=== PATIENT | female | born 1995 | race Two or more races ===

== ENCOUNTER → 2020-09-13 07:57 | Outpatient (BNVA) | payer OTHER, SELFPAY | PROVIDERS: PCP Family Medicine; Visit Provider Advanced Practice Midwife ==

== ENCOUNTER 2020-11-14 08:21 | Outpatient (REF) | payer OTHER, SELFPAY ==
[2020-11-14 11:50] LABS: MANUAL DIFF FLAG NO
[2020-11-14 12:08] LABS: Basophils Percent Auto 0.3 % (0-2); Eosinophils Absolute Auto 0.1 X10*3/uL (0.0-0.4); Hematocrit 41.5 % (37-47); Hemoglobin 12.8 g/dl (12.0-16.0); Imm Gran Abs Auto 0.02 X10*3/uL (0.00-0.03); Imm Gran Pct Auto 0.3 % (0.0-0.4); Lymphocytes Absolute Auto 1.6 X10*3/uL (1.2-4.9); Lymphocytes Percent Auto 27.4 % (20-40); Mean Corpuscular HGB Conc 30.8 g/dl (31.0-35.0); Mean Corpuscular Hemoglobin 26.7 pg (27.0-33.0); Mean Corpuscular Volume 86.6 fL (80-98); Mean Platelet Volume 9.1 fL (9.4-12.3); Monocytes Absolute Auto 0.3 X10*3/uL (0.1-1.2); Monocytes Percent Auto 5.8 % (2-11); Neutrophils Absolute Auto 3.8 X10*3/uL (2.0-8.3); Neutrophils Percent Auto 65.2 % (45-73); Platelet Count 440 X10*3/uL (160-400); Red Blood Count 4.79 X10*6/uL (4.20-5.50); Red Cell Distribution Width 13.3 % (11.0-16.0); White Blood Count 5.9 X10*3/uL (4.8-10.8)
[2020-11-14 12:17] LABS: Estimated Average Glucose 103 mg/dL; Hemoglobin A1c % 5.2 %
[2020-11-14 12:42] LABS: Alanine Aminotransferase 36 U/L (0-31); Albumin Level 4.5 g/dL (3.5-5.0); Alkaline Phosphatase 66 U/L (39-117); Anion Gap 16 (12-20); Aspartate Amino Transferase 16 U/L (5-31); Bilirubin Total 0.4 mg/dL (0.0-1.0); Blood Urea Nitrogen 12 mg/dL (9-16); C Reactive Protein 0.51 mg/dL (< or = 0.50); Calcium 9.5 mg/dL (8.4-10.2); Carbon Dioxide 25 mmol/L (22-29); Chloride 104 mmol/L (96-108); Cholesterol 245 mg/dL; Estimated Glomerular Filt Rate > 60; Glucose Fasting 80 mg/dL (60-99); HDL Cholesterol 60 mg/dL; Iron 40 mcg/dL (30-160); LDL Cholesterol Calculated 164 mg/dl; Percent Iron Saturation 10 % (15-50); Potassium 4.6 mmol/L (3.3-5.1); Sodium 140 mmol/L (135-145); Total Iron Binding Capacity 388 mcg/dL (228-428); Total Protein 7.4 g/dL (6.5-8.0); Triglycerides 106 mg/dL; Unsaturated Iron Binding 348 ug/dL
[2020-11-14 12:56] LABS: Ferritin 8 ng/mL (10-122); TSH reflex Free T4 1.75 uIU/mL (0.32-4.0); Vitamin D 25-OH Total 40.5 ng/mL (>30)
[2020-11-14 13:47] LABS: Folate > 20.0 ng/mL (> or = 4.0); Vitamin B12 304 pg/mL (200-900)
[2020-11-15 09:37] LABS: Insulin Level Total 13.6 uIU/mL
[2020-11-15 14:01] LABS: Calcium (PTHI) 9.6 mg/dL (8.6-10.2); PTHI 42 pg/mL (14-64)
[2020-11-17 07:26] LABS: Vitamin B1 15 nmol/L (8-30)
[2020-11-17 17:06] LABS: Vitamin A 75 mcg/dL (38-98)
[2020-11-20 01:11] LABS: Zinc 86 mcg/dL (60-130)
== END 2020-11-14 08:22 | disposition home or self-care (01) ==
LOC: HO.LAB 08:21
PROVIDERS: PCP Family Medicine; Visit Provider Physician Assistant
DX: E66.01 Morbid (severe) obesity due to excess calories (principal); Z68.38 Body mass index [BMI] 38.0-38.9, adult
CPT/HCPCS: 36415; 80053; 80061; 82306; 82607; 82728; 82746; 83036; 83525; 83540; 83970; 84425; 84443; 84590; 84630; 85025; 86140; 99202

== ENCOUNTER → 2020-12-12 08:43 | Outpatient (BNVA) | payer OTHER, SELFPAY | PROVIDERS: PCP Family Medicine; Visit Provider Advanced Practice Midwife | DX: Z30.41 Encounter for surveillance of contraceptive pills (principal) | CPT/HCPCS: 99212 ==

== ENCOUNTER 2021-01-20 08:53 | Outpatient (REF) | payer OTHER, SELFPAY | END 2021-01-20 08:54 | disposition home or self-care (01) | LOC: HO.WFDLDS 08:53 | PROVIDERS: Visit Provider Allergy & Immunology | DX: T78.1XXA Other adverse food reactions, not elsewhere classified, initial encounter (principal) | CPT/HCPCS: 36415; 86003 ==

== ENCOUNTER → 2021-04-14 08:47 | Outpatient (BNVA) | payer OTHER, SELFPAY | PROVIDERS: PCP Family Medicine; Visit Provider Advanced Practice Midwife | DX: Z30.41 Encounter for surveillance of contraceptive pills (principal); E66.9 Obesity, unspecified; Z68.39 Body mass index [BMI] 39.0-39.9, adult | CPT/HCPCS: 99212 ==

== ENCOUNTER 2021-05-24 10:24 | Outpatient (REF) | payer OTHER, SELFPAY ==
[2021-05-24 11:16] LABS: Iron 60 mcg/dL (30-160); Percent Iron Saturation 17 % (15-50); Total Iron Binding Capacity 359 mcg/dL (228-428); Unsaturated Iron Binding 299 ug/dL
[2021-05-24 12:04] LABS: Folate > 20.0 ng/mL (> or = 4.0); Vitamin B12 716 pg/mL (200-900)
== END 2021-05-24 10:25 | disposition home or self-care (01) ==
LOC: HO.LAB 10:24
PROVIDERS: Visit Provider Physician Assistant
DX: D64.9 Anemia, unspecified (principal); E53.8 Deficiency of other specified B group vitamins
CPT/HCPCS: 36415; 82607; 82746; 83540

== ENCOUNTER → 2021-05-30 12:11 | Outpatient (BNVA) | payer OTHER, SELFPAY | PROVIDERS: PCP Family Medicine; Visit Provider Advanced Practice Midwife ==

== ENCOUNTER → 2021-06-01 11:36 | Outpatient (BNVA) | payer OTHER, SELFPAY | PROVIDERS: PCP Family Medicine; Visit Provider Advanced Practice Midwife ==

== ENCOUNTER 2021-06-01 16:16 | Emergency (ER) | payer OTHER, SELFPAY ==
[2021-06-01 16:22] VITALS: BP 129/72; PULSE 100; RESP 18; TEMP 36.8; O2SAT 99; BMI 39.1
[2021-06-01] MEDS: Ibuprofen 600 MG TABLET PO (16:27)
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
== END 2021-06-01 18:20 | disposition home or self-care (01) ==
PROVIDERS: Emergency Provider Emergency Medicine; PCP Family Medicine
DX: S29.012A Strain of muscle and tendon of back wall of thorax, initial encounter (principal); V89.2XXA Person injured in unspecified motor-vehicle accident, traffic, initial encounter; Y93.9 Activity, unspecified; Y92.410 Unspecified street and highway as the place of occurrence of the external cause; Y99.9 Unspecified external cause status
CPT/HCPCS: 99283; 99284

== ENCOUNTER → 2021-07-26 15:41 | Outpatient (BNVA) | payer OTHER, SELFPAY | PROVIDERS: PCP Family Medicine; Referring Provider Family Medicine; Visit Provider Physician Assistant ==

== ENCOUNTER → 2021-07-28 07:31 | Outpatient (BNVA) | payer OTHER, SELFPAY | PROVIDERS: PCP Family Medicine; Visit Provider Surgery ==

== ENCOUNTER 2021-08-01 07:33 | Outpatient (REF) | payer OTHER, SELFPAY ==
--- NOTE | ~2021-08-01 | XR_ITS ---
EXAMINATION: XR CHEST CLINICAL INFORMATION: Morbid obesity due to excess calories. COMPARISON: 10/20/2019 chest radiograph. TECHNIQUE: 2 views of the chest were obtained. FINDINGS: No significant abnormality is noted involving the heart, lungs, mediastinum, bony thorax or soft tissues. XR/XR chest 2V IMPRESSION: No acute cardiopulmonary process.
[2021-08-01 08:07] LABS: MANUAL DIFF FLAG NO
[2021-08-01 08:32] LABS: Basophils Percent Auto 0.5 % (0-2); Eosinophils Absolute Auto 0.1 X10*3/uL (0.0-0.4); Eosinophils Percent Auto 1.2 % (0-4); Hematocrit 41.5 % (37.0-47.0); Imm Gran Abs Auto 0.02 X10*3/uL (0.00-0.03); Imm Gran Pct Auto 0.3 % (0.0-0.4); Lymphocytes Percent Auto 34.3 % (20-40); Mean Corpuscular HGB Conc 31.3 g/dl (31.0-35.0); Mean Corpuscular Volume 86.3 fL (80.0-98.0); Mean Platelet Volume 8.7 fL (9.4-12.3); Monocytes Absolute Auto 0.4 X10*3/uL (0.1-1.2); Monocytes Percent Auto 6.4 % (2-11); Neutrophils Absolute Auto 3.3 x10*3/uL (2.0-8.3); Neutrophils Percent Auto 57.3 % (45-73); Platelet Count 407 X10*3/uL (160-400); Red Blood Count 4.81 X10*6/uL (4.20-5.50); Red Cell Distribution Width 12.9 % (11.0-16.0); White Blood Count 5.8 X10*3/uL (4.8-10.8)
[2021-08-01 08:40] LABS: Estimated Average Glucose 105 mg/dL; Hemoglobin A1c % 5.3 %
[2021-08-01 08:47] LABS: Alanine Aminotransferase 23 U/L (0-31); Albumin Level 4.1 g/dL (3.5-5.0); Alkaline Phosphatase 69 U/L (39-117); Anion Gap 10 (12-20); Aspartate Amino Transferase 11 U/L (5-31); Bilirubin Total 0.5 mg/dL (0.0-1.0); Blood Urea Nitrogen 16 mg/dL (9-16); C Reactive Protein 0.79 mg/dL (< or = 0.50); Calcium 9.6 mg/dL (8.4-10.2); Carbon Dioxide 27 mmol/L (22-29); Chloride 105 mmol/L (96-108); Cholesterol 221 mg/dL; Estimated Glomerular Filt Rate > 60; Glucose Random 86 mg/dL (60-115); HDL Cholesterol 46 mg/dL; Iron 128 mcg/dL (30-160); LDL Cholesterol Calculated 146 mg/dl; Percent Iron Saturation 36 % (15-50); Potassium 4.4 mmol/L (3.3-5.1); Sodium 138 mmol/L (135-145); Total Iron Binding Capacity 355 mcg/dL (228-428); Total Protein 7.3 g/dL (6.5-8.0); Triglycerides 149 mg/dL; Unsaturated Iron Binding 227 ug/dL
[2021-08-01 09:48] LABS: Folate > 20.0 ng/mL (> or = 4.0); TSH reflex Free T4 1.96 uIU/mL (0.32-4.0); Vitamin B12 500 pg/mL (200-900); Vitamin D 25-OH Total 33.6 ng/mL (>30)
--- NOTE | 2021-08-01 09:50 | ECG_ITS ---
Test Reason : obesity Blood Pressure : / mmHG Vent. Rate : 084 BPM Atrial Rate : 084 BPM P-R Int : 168 ms QRS Dur : 084 ms QT Int : 382 ms P-R-T Axes : 046 041 041 degrees QTc Int : 451 ms Normal sinus rhythm Normal ECG No previous ECGs available Referred By: Rashawn Marie Electronically Signed By:KELLY HENDRIX
[2021-08-01 10:00] LABS: Ferritin 21 ng/mL (10-122); Insulin 14 uU/mL (2-29)
[2021-08-02 13:50] LABS: Calcium (PTHI) 9.4 mg/dL (8.6-10.2); PTHI 46 pg/mL (14-64)
[2021-08-05 03:36] LABS: Zinc 79 mcg/dL (60-130)
[2021-08-06 10:46] LABS: Vitamin A 80 mcg/dL (38-98)
[2021-08-06 11:58] LABS: Vitamin B1 16 nmol/L (8-30)
== END 2021-08-01 07:34 | disposition home or self-care (01) ==
LOC: HO.LAB 07:33
PROVIDERS: PCP Family Medicine; Visit Provider Surgery
DX: Z01.818 Encounter for other preprocedural examination (principal); E66.01 Morbid (severe) obesity due to excess calories
CPT/HCPCS: 36415; 71046; 80053; 80061; 82306; 82607; 82728; 82746; 83036; 83525; 83540; 83970; 84425; 84443; 84590; 84630; 85025; 86140; 93005

== ENCOUNTER 2021-08-03 07:48 | Outpatient (REF) | payer OTHER, SELFPAY ==
[2021-08-04 13:00] LABS: H Pylori Breath Test Negative (Negative)
== END 2021-08-03 07:49 | disposition home or self-care (01) ==
LOC: HO.LNP 07:48
PROVIDERS: Surgery; PCP Family Medicine; Referring Provider Family Medicine; Visit Provider Physician Assistant Surgical
DX: E66.01 Morbid (severe) obesity due to excess calories (principal); Z11.0 Encounter for screening for intestinal infectious diseases
CPT/HCPCS: 83013; 99211

== ENCOUNTER 2021-08-07 13:54 | Outpatient (REF) | payer OTHER, SELFPAY | END 2021-08-07 13:55 | disposition home or self-care (01) | LOC: HO.LNP 13:54 | PROVIDERS: Visit Provider Hospitalist | DX: Z20.822 Contact with and (suspected) exposure to COVID-19 (principal); J06.9 Acute upper respiratory infection, unspecified | CPT/HCPCS: U0003; U0005 ==

== ENCOUNTER 2021-09-19 08:10 | Outpatient (REF) | payer OTHER, SELFPAY ==
[2021-09-19 16:17] LABS: CT PCR NOT DETECTED (Not Detect.); NG PCR NOT DETECTED (Not Detect.)
== END 2021-09-19 08:11 | disposition home or self-care (01) ==
LOC: HO.LAB 08:10
PROVIDERS: PCP Family Medicine; Visit Provider Advanced Practice Midwife
DX: Z01.419 Encounter for gynecological examination (general) (routine) without abnormal findings (principal); Z11.3 Encounter for screening for infections with a predominantly sexual mode of transmission; Z11.8 Encounter for screening for other infectious and parasitic diseases; J02.9 Acute pharyngitis, unspecified; E53.8 Deficiency of other specified B group vitamins; E66.01 Morbid (severe) obesity due to excess calories; T78.49XA Other allergy, initial encounter; Z68.38 Body mass index [BMI] 38.0-38.9, adult; Z88.1 Allergy status to other antibiotic agents; Z88.0 Allergy status to penicillin; J30.89 Other allergic rhinitis; Z79.899 Other long term (current) drug therapy
CPT/HCPCS: 87491; 87591

== ENCOUNTER 2021-09-21 08:28 | Outpatient (REF) | payer OTHER, SELFPAY ==
[2021-09-21 11:49] LABS: MANUAL DIFF FLAG NO
[2021-09-21 11:51] LABS: Basophils Percent Auto 0.2 % (0-2); Eosinophils Absolute Auto 0.1 X10*3/uL (0.0-0.4); Eosinophils Percent Auto 1.7 % (0-4); Hematocrit 38.1 % (37.0-47.0); Hemoglobin 11.9 g/dl (12.0-16.0); Imm Gran Abs Auto 0.05 X10*3/uL (0.00-0.03); Imm Gran Pct Auto 0.9 % (0.0-0.4); Lymphocytes Absolute Auto 1.6 X10*3/uL (1.2-4.9); Lymphocytes Percent Auto 27.3 % (20-40); Mean Corpuscular HGB Conc 31.2 g/dl (31.0-35.0); Mean Corpuscular Hemoglobin 26.9 pg (27.0-33.0); Mean Corpuscular Volume 86.2 fL (80.0-98.0); Mean Platelet Volume 9.2 fL (9.4-12.3); Monocytes Absolute Auto 0.3 X10*3/uL (0.1-1.2); Monocytes Percent Auto 5.5 % (2-11); Neutrophils Absolute Auto 3.8 x10*3/uL (2.0-8.3); Neutrophils Percent Auto 64.4 % (45-73); Platelet Count 411 X10*3/uL (160-400); Red Blood Count 4.42 X10*6/uL (4.20-5.50); Red Cell Distribution Width 13.2 % (11.0-16.0); White Blood Count 5.8 X10*3/uL (4.8-10.8)
[2021-09-21 13:29] LABS: Monotest Negative (Negative)
== END 2021-09-21 08:29 | disposition home or self-care (01) ==
LOC: HO.WFDLDS 08:28
PROVIDERS: Visit Provider Family Medicine
DX: J02.9 Acute pharyngitis, unspecified (principal)
CPT/HCPCS: 36415; 85025; 86308

== ENCOUNTER 2022-09-04 07:08 | Outpatient (REF) | payer OTHER, MEDICAID, SELFPAY ==
[2022-09-04 11:20] LABS: MANUAL DIFF FLAG NO
[2022-09-04 11:35] LABS: Basophils Percent Auto 0.3 % (0-2); Eosinophils Absolute Auto 0.1 X10*3/uL (0.0-0.4); Eosinophils Percent Auto 1.5 % (0-4); Hematocrit 42.1 % (37.0-47.0); Hemoglobin 13.1 g/dl (12.0-16.0); Imm Gran Abs Auto 0.03 X10*3/uL (0.00-0.03); Imm Gran Pct Auto 0.4 % (0.0-0.4); Lymphocytes Absolute Auto 2.3 X10*3/uL (1.2-4.9); Lymphocytes Percent Auto 33.1 % (20-40); Mean Corpuscular HGB Conc 31.1 g/dl (31.0-35.0); Mean Corpuscular Hemoglobin 26.4 pg (27.0-33.0); Mean Corpuscular Volume 84.9 fL (80.0-98.0); Mean Platelet Volume 9.4 fL (9.4-12.3); Monocytes Absolute Auto 0.4 X10*3/uL (0.1-1.2); Monocytes Percent Auto 6.2 % (2-11); Neutrophils Percent Auto 58.5 % (45-73); Platelet Count 424 X10*3/uL (160-400); Red Blood Count 4.96 X10*6/uL (4.20-5.50); Red Cell Distribution Width 13.5 % (11.0-16.0); White Blood Count 6.8 X10*3/uL (4.8-10.8)
[2022-09-04 11:58] LABS: Alanine Aminotransferase 40 U/L (0-31); Albumin Level 4.3 g/dL (3.5-5.0); Alkaline Phosphatase 83 U/L (39-117); Anion Gap 14 (12-20); Aspartate Amino Transferase 30 U/L (5-31); Bilirubin Total 0.5 mg/dL (0.0-1.0); Blood Urea Nitrogen 7 mg/dL (9-16); Calcium 9.4 mg/dL (8.4-10.2); Carbon Dioxide 25 mmol/L (22-29); Chloride 105 mmol/L (96-108); Cholesterol 237 mg/dL; Estimated Glomerular Filt Rate > 60; Glucose Fasting 81 mg/dL (60-99); HDL Cholesterol 58 mg/dL; LDL Cholesterol Calculated 140 mg/dl; Potassium 4.3 mmol/L (3.3-5.1); Sodium 140 mmol/L (135-145); Total Protein 7.3 g/dL (6.5-8.0); Triglycerides 196 mg/dL
[2022-09-04 12:15] LABS: TSH reflex Free T4 2.87 uIU/mL (0.32-4.0)
[2022-09-04 12:20] LABS: Appearance Urine Cloudy; Color Urine Dark Yellow; Glucose Urine UA Negative (Negative); Leukocyte Esterase Urine Large (3+) (Negative); Nitrite Urine Negative (Negative); UMIC TRIGGER UA YES; Urine Blood Negative (Negative); Urine Ketones Negative (Negative); Urine Protein Trace mg/dL (Neg-Trace)
[2022-09-04 12:23] LABS: Bacteria Urine 3+ (None Seen); Hyaline Casts Urine 0-2 /LPF (0-2); RBC Urine 0-2 /HPF (0-2); Squamous Epithelial Cell Urine >20 /HPF (0-2); WBC Urine >50 /HPF (0-5)
== END 2022-09-04 07:09 | disposition home or self-care (01) ==
LOC: HO.WFDLDS 07:08
PROVIDERS: Visit Provider Family Medicine
DX: Z00.00 Encounter for general adult medical examination without abnormal findings (principal)
CPT/HCPCS: 36415; 80053; 80061; 81001; 81003; 84443; 85025

== ENCOUNTER 2022-12-31 06:56 | Outpatient (REF) | payer OTHER, MEDICAID, SELFPAY ==
[2022-12-31 11:04] LABS: MANUAL DIFF FLAG NO
[2022-12-31 11:11] LABS: Basophils Percent Auto 0.1 % (0-2); Eosinophils Absolute Auto 0.1 X10*3/uL (0.0-0.4); Eosinophils Percent Auto 1.5 % (0-4); Hematocrit 39.9 % (37.0-47.0); Hemoglobin 12.2 g/dl (12.0-16.0); Imm Gran Abs Auto 0.02 X10*3/uL (0.00-0.03); Imm Gran Pct Auto 0.3 % (0.0-0.4); Lymphocytes Absolute Auto 1.9 X10*3/uL (1.2-4.9); Lymphocytes Percent Auto 28.2 % (20-40); Mean Corpuscular HGB Conc 30.6 g/dl (31.0-35.0); Mean Corpuscular Hemoglobin 26.4 pg (27.0-33.0); Mean Corpuscular Volume 86.4 fL (80.0-98.0); Mean Platelet Volume 9.8 fL (9.4-12.3); Monocytes Absolute Auto 0.4 X10*3/uL (0.1-1.2); Neutrophils Absolute Auto 4.4 x10*3/uL (2.0-8.3); Neutrophils Percent Auto 63.9 % (45-73); Platelet Count 406 X10*3/uL (160-400); Red Blood Count 4.62 X10*6/uL (4.20-5.50); Red Cell Distribution Width 14.1 % (11.0-16.0); White Blood Count 6.9 X10*3/uL (4.8-10.8)
[2022-12-31 11:29] LABS: Alanine Aminotransferase 21 U/L (0-31); Alkaline Phosphatase 63 U/L (39-117); Anion Gap 13 (12-20); Aspartate Amino Transferase 13 U/L (5-31); Bilirubin Total 0.3 mg/dL (0.0-1.0); Blood Urea Nitrogen 9 mg/dL (9-16); Calcium 9.1 mg/dL (8.4-10.2); Carbon Dioxide 24 mmol/L (22-29); Chloride 107 mmol/L (96-108); Cholesterol 198 mg/dL; Estimated Glomerular Filt Rate > 60; Glucose Fasting 83 mg/dL (60-99); HDL Cholesterol 55 mg/dL; LDL Cholesterol Calculated 118 mg/dl; Potassium 4.5 mmol/L (3.3-5.1); Sodium 139 mmol/L (135-145); Total Protein 6.7 g/dL (6.5-8.0); Triglycerides 128 mg/dL
== END 2022-12-31 06:57 | disposition home or self-care (01) ==
LOC: HO.WFDLDS 06:56
PROVIDERS: Visit Provider Family Medicine
DX: Z00.00 Encounter for general adult medical examination without abnormal findings (principal); R79.89 Other specified abnormal findings of blood chemistry; E78.00 Pure hypercholesterolemia, unspecified; R74.01 Elevation of levels of liver transaminase levels
CPT/HCPCS: 36415; 80053; 80061; 85025

== ENCOUNTER 2023-01-01 07:09 | Outpatient (REF) | payer OTHER, MEDICAID, SELFPAY ==
[2023-01-01 15:59] LABS: CT PCR NOT DETECTED (Not Detect.); NG PCR NOT DETECTED (Not Detect.)
[2023-01-02 06:12] LABS: Syphilis Screen Nonreactive (Nonreactive)
[2023-01-02 07:34] LABS: HBS Num1 11.86 mIU/mL (0-7.99); HBc Num1 0.14 S/CO (0.00-0.79); HBsAGNum1 0.49 S/CO (0.00-0.99); HIV AB/AG Nonreactive (Nonreactive); HIV Num 1 0.06 S/CO (0.00-0.99); Hepatitis B Core Antibody Nonreactive (Nonreactive); Hepatitis B Surface Antigen Negative (Negative); ~HepC Num1 0.08 S/CO (0.00-0.79); ~Hepatitis C Antibody Nonreactive (Nonreactive)
[2023-01-02 09:34] LABS: HBS Num2 12.46 mIU/mL (0-7.99); HBS Num3 12.34 mIU/mL (0-7.99); ~Hepatitis B Surface Antibody REACTIVE (Nonreactive)
== END 2023-01-01 07:10 | disposition home or self-care (01) ==
LOC: HO.WFDLDS 07:09
PROVIDERS: Visit Provider Nurse Practitioner Family
DX: Z11.4 Encounter for screening for human immunodeficiency virus [HIV] (principal); Z20.2 Contact with and (suspected) exposure to infections with a predominantly sexual mode of transmission
CPT/HCPCS: 0353U; 36415; 86704; 86706; 86780; 86803; 87340; 87389

== ENCOUNTER 2023-01-09 08:16 | Outpatient (REF) | payer OTHER, MEDICAID, SELFPAY | END 2023-01-09 08:17 | disposition home or self-care (01) | LOC: HO.LAB 08:16 | PROVIDERS: Visit Provider Nurse Practitioner Family | DX: Z13.89 Encounter for screening for other disorder (principal) ==

== ENCOUNTER 2023-05-31 09:28 | Outpatient (REF) | payer OTHER, MEDICAID, SELFPAY ==
[2023-05-31 15:13] LABS: CT PCR NOT DETECTED (Not Detect.); NG PCR NOT DETECTED (Not Detect.)
== END 2023-05-31 09:29 | disposition home or self-care (01) ==
LOC: HO.LNP 09:28
PROVIDERS: PCP Family Medicine; Visit Provider Advanced Practice Midwife
DX: Z01.419 Encounter for gynecological examination (general) (routine) without abnormal findings (principal); Z20.2 Contact with and (suspected) exposure to infections with a predominantly sexual mode of transmission
CPT/HCPCS: 0353U; 88142

== ENCOUNTER 2023-05-31 09:28 | Outpatient (AMB) | payer OTHER, MEDICAID, SELFPAY ==
[2023-05-31 09:46] VITALS: BP 116/72; BMI 41.4
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
== END 2023-05-31 10:13 | disposition home or self-care (01) ==
PROVIDERS: PCP Family Medicine; Visit Provider Advanced Practice Midwife
DX: Z01.419 Encounter for gynecological examination (general) (routine) without abnormal findings (principal); Z20.2 Contact with and (suspected) exposure to infections with a predominantly sexual mode of transmission; Z30.41 Encounter for surveillance of contraceptive pills
CPT/HCPCS: 99395

== ENCOUNTER 2023-10-16 15:29 | Outpatient (AMB) | payer OTHER, SELFPAY ==
[2023-10-16 15:51] VITALS: BP 118/68; PULSE 87; O2SAT 98; BMI 42.7
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
== END 2023-10-16 16:55 | disposition home or self-care (01) ==
PROVIDERS: PCP Family Medicine; Visit Provider Family Medicine
DX: G47.19 Other hypersomnia (principal); G43.909 Migraine, unspecified, not intractable, without status migrainosus
CPT/HCPCS: 99213

== ENCOUNTER 2024-01-07 07:43 | Outpatient (REF) | payer OTHER, SELFPAY ==
[2024-01-07 11:29] LABS: MANUAL DIFF FLAG NO
[2024-01-07 11:39] LABS: Appearance Urine Clear; Color Urine Yellow; Glucose Urine UA Negative (Negative); Leukocyte Esterase Urine Moderate (2+) (Negative); Nitrite Urine Negative (Negative); Specific Gravity - Urine 1.015 (1.005-1.025); UMIC TRIGGER UA YES; Urine Blood Negative (Negative); Urine Ketones Negative (Negative); Urine Protein Negative (Neg-Trace)
[2024-01-07 11:49] LABS: Bacteria Urine 1+ (None Seen); Hyaline Casts Urine 0-2 /LPF (0-2); RBC Urine 0-2 /HPF (0-2)
[2024-01-07 12:03] LABS: Basophils Percent Auto 0.4 % (0-2); Eosinophils Absolute Auto 0.1 X10*3/uL (0.0-0.4); Eosinophils Percent Auto 2.3 % (0-4); Hematocrit 40.1 % (37.0-47.0); Hemoglobin 12.7 g/dl (12.0-16.0); Imm Gran Abs Auto 0.03 X10*3/uL (0.00-0.03); Imm Gran Pct Auto 0.6 % (0.0-0.4); Lymphocytes Absolute Auto 1.6 X10*3/uL (1.2-4.9); Lymphocytes Percent Auto 30.8 % (20-40); Mean Corpuscular HGB Conc 31.7 g/dl (31.0-35.0); Mean Corpuscular Hemoglobin 27.2 pg (27.0-33.0); Mean Corpuscular Volume 85.9 fL (80.0-98.0); Mean Platelet Volume 9.5 fL (9.4-12.3); Monocytes Absolute Auto 0.4 X10*3/uL (0.1-1.2); Neutrophils Percent Auto 58.9 % (45-73); Platelet Count 364 X10*3/uL (160-400); Red Blood Count 4.67 X10*6/uL (4.20-5.50); Red Cell Distribution Width 13.9 % (11.0-16.0); White Blood Count 5.1 X10*3/uL (4.8-10.8)
[2024-01-07 12:26] LABS: Alanine Aminotransferase 23 U/L (0-31); Albumin Level 4.1 g/dL (3.5-5.0); Alkaline Phosphatase 64 U/L (39-117); Anion Gap 10 (12-20); Aspartate Amino Transferase 20 U/L (5-31); Bilirubin Total 0.3 mg/dL (0.0-1.0); Blood Urea Nitrogen 12 mg/dL (9-16); Calcium 9.5 mg/dL (8.4-10.2); Carbon Dioxide 25 mmol/L (22-29); Chloride 108 mmol/L (96-108); Cholesterol 203 mg/dL (<200); Estimated Glomerular Filt Rate > 60; Glucose Fasting 82 mg/dL (60-99); HDL Cholesterol 52 mg/dL (>40); LDL Cholesterol Calculated 118 mg/dL (<100); Potassium 4.3 mmol/L (3.3-5.1); Sodium 139 mmol/L (135-145); Total Protein 7.3 g/dL (6.5-8.0); Triglycerides 167 mg/dL (<150)
[2024-01-07 12:39] LABS: Erythrocyte Sedimentation Rate 13 MM/HR (0-20)
[2024-01-07 12:46] LABS: TSH reflex Free T4 1.89 uIU/mL (0.32-4.0); Vitamin D 25-OH Total 48.8 ng/mL (>30)
[2024-01-07 12:47] LABS: Creatinine Urine 93.26 mg/dL; Microalbum/Creatinine Ratio Ur 6.4 ug/mg cr (<30)
[2024-01-07 12:55] LABS: Vitamin B12 300 pg/mL (200-900)
[2024-01-08 08:54] LABS: CRP High Sensitivity 10.4 mg/L
== END 2024-01-07 07:44 | disposition home or self-care (01) ==
LOC: HO.WFDLDS 07:43
PROVIDERS: Visit Provider Family Medicine
DX: Z00.00 Encounter for general adult medical examination without abnormal findings (principal); E55.9 Vitamin D deficiency, unspecified; G43.909 Migraine, unspecified, not intractable, without status migrainosus; I10 Essential (primary) hypertension; E53.8 Deficiency of other specified B group vitamins
CPT/HCPCS: 36415; 80053; 80061; 81001; 82043; 82306; 82570; 82607; 82746; 84443; 85025; 85652; 86141

== ENCOUNTER 2024-01-14 08:35 | Outpatient (AMB) | payer OTHER, SELFPAY ==
[2024-01-14 08:39] VITALS: BP 118/58; PULSE 98; O2SAT 98; BMI 43.1
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
== END 2024-01-14 09:16 | disposition home or self-care (01) ==
PROVIDERS: PCP Family Medicine; Visit Provider Family Medicine
DX: Z00.00 Encounter for general adult medical examination without abnormal findings (principal); E66.01 Morbid (severe) obesity due to excess calories; Z68.41 Body mass index [BMI] 40.0-44.9, adult; G47.19 Other hypersomnia; E78.00 Pure hypercholesterolemia, unspecified
CPT/HCPCS: 99395

== ENCOUNTER 2024-01-20 12:06 | Outpatient (AMB) | payer OTHER, SELFPAY ==
[2024-01-20 12:33] VITALS: BMI 43.7
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
[2024-01-22 14:03] VITALS: BMI 43.8
== END 2024-01-20 13:14 | disposition home or self-care (01) ==
PROVIDERS: PCP Family Medicine; Visit Provider Dietitian, Registered
DX: E66.01 Morbid (severe) obesity due to excess calories (principal)

== ENCOUNTER → 2024-01-20 12:06 | Outpatient (BNVA) | payer OTHER, SELFPAY | PROVIDERS: PCP Family Medicine; Visit Provider Dietitian, Registered | DX: E66.01 Morbid (severe) obesity due to excess calories (principal); Z68.41 Body mass index [BMI] 40.0-44.9, adult; Z71.3 Dietary counseling and surveillance | CPT/HCPCS: 97802 ==

== ENCOUNTER 2024-02-24 12:20 | Outpatient (AMB) | payer OTHER, SELFPAY ==
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
[2024-02-24 12:32] VITALS: BMI 42.9
== END 2024-02-24 13:05 | disposition home or self-care (01) ==
PROVIDERS: PCP Family Medicine; Visit Provider Dietitian, Registered
DX: E66.01 Morbid (severe) obesity due to excess calories (principal)

== ENCOUNTER → 2024-02-24 12:20 | Outpatient (BNVA) | payer OTHER, SELFPAY | PROVIDERS: PCP Family Medicine; Visit Provider Dietitian, Registered | DX: E66.01 Morbid (severe) obesity due to excess calories (principal); Z68.41 Body mass index [BMI] 40.0-44.9, adult; Z71.3 Dietary counseling and surveillance | CPT/HCPCS: 97803 ==

== ENCOUNTER → 2024-07-14 09:38 | Outpatient (AMB) | payer OTHER, SELFPAY ==
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
[2024-07-14 09:57] VITALS: BP 102/66; PULSE 96; RESP 16; TEMP 37.4; O2SAT 97; BMI 43.8
== END ==
PROVIDERS: PCP Family Medicine; Visit Provider Family Medicine
DX: R10.13 Epigastric pain (principal)

== ENCOUNTER → 2024-07-14 09:38 | Outpatient (BNVA) | payer OTHER, SELFPAY | PROVIDERS: PCP Family Medicine; Visit Provider Family Medicine ==

== ENCOUNTER 2024-07-14 10:14 | Outpatient (REF) | payer OTHER, SELFPAY ==
[2024-07-14 14:22] LABS: MANUAL DIFF FLAG NO
[2024-07-14 14:23] LABS: Appearance Urine Clear; Color Urine Yellow; Glucose Urine UA Negative (Negative); Leukocyte Esterase Urine Moderate (2+) (Negative); Nitrite Urine Negative (Negative); UMIC TRIGGER UA YES; Urine Blood Negative (Negative); Urine Ketones Negative (Negative); Urine Protein Negative (Neg-Trace)
[2024-07-14 14:28] LABS: Bacteria Urine 1+ (None Seen); Hyaline Casts Urine 0-2 /LPF (0-2); RBC Urine 0-2 /HPF (0-2)
[2024-07-14 14:48] LABS: Basophils Percent Auto 0.4 % (0-2); Eosinophils Absolute Auto 0.1 X10*3/uL (0.0-0.4); Eosinophils Percent Auto 1.7 % (0-4); Hematocrit 40.4 % (37.0-47.0); Hemoglobin 12.5 g/dl (12.0-16.0); Imm Gran Abs Auto 0.02 X10*3/uL (0.00-0.03); Imm Gran Pct Auto 0.4 % (0.0-0.4); Lymphocytes Absolute Auto 1.6 X10*3/uL (1.2-4.9); Lymphocytes Percent Auto 31.2 % (20-40); Mean Corpuscular HGB Conc 30.9 g/dl (31.0-35.0); Mean Corpuscular Hemoglobin 26.4 pg (27.0-33.0); Mean Corpuscular Volume 85.2 fL (80.0-98.0); Mean Platelet Volume 9.5 fL (9.4-12.3); Monocytes Absolute Auto 0.3 X10*3/uL (0.1-1.2); Monocytes Percent Auto 6.5 % (2-11); Neutrophils Absolute Auto 3.2 x10*3/uL (2.0-8.3); Neutrophils Percent Auto 59.8 % (45-73); Platelet Count 391 X10*3/uL (160-400); Red Blood Count 4.74 X10*6/uL (4.20-5.50); Red Cell Distribution Width 13.4 % (11.0-16.0); White Blood Count 5.3 X10*3/uL (4.8-10.8)
[2024-07-14 14:54] LABS: Alanine Aminotransferase 23 U/L (0-31); Albumin Level 4.1 g/dL (3.5-5.0); Alkaline Phosphatase 67 U/L (39-117); Anion Gap 11 (12-20); Aspartate Amino Transferase 18 U/L (5-31); Bilirubin Total 0.2 mg/dL (0.0-1.0); Blood Urea Nitrogen 8 mg/dL (9-16); Calcium 9.1 mg/dL (8.4-10.2); Carbon Dioxide 25 mmol/L (22-29); Chloride 108 mmol/L (96-108); Estimated Glomerular Filt Rate > 60; Glucose Random 112 mg/dL (60-115); Lipase 12 U/L (8-78); Potassium 3.9 mmol/L (3.3-5.1); Sodium 140 mmol/L (135-145); Total Protein 7.5 g/dL (6.5-8.0)
== END 2024-07-14 10:15 | disposition home or self-care (01) ==
LOC: HO.WFDLDS 10:14
PROVIDERS: Visit Provider Family Medicine
DX: Z00.00 Encounter for general adult medical examination without abnormal findings (principal); R10.13 Epigastric pain
CPT/HCPCS: 36415; 80053; 81001; 83690; 85025

== ENCOUNTER 2024-07-20 11:14 | Outpatient (REF) | payer OTHER, SELFPAY | END 2024-07-20 11:15 | disposition home or self-care (01) | LOC: HO.LNP 11:14 | PROVIDERS: Visit Provider Family Medicine | DX: R10.13 Epigastric pain (principal) | CPT/HCPCS: 87338 ==

== ENCOUNTER 2024-08-05 11:49 | Outpatient (AMB) | payer OTHER, SELFPAY ==
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
[2024-08-05 12:07] VITALS: BP 100/70; PULSE 95; RESP 14; TEMP 36.8; O2SAT 97; BMI 42.7
== END 2024-08-05 12:55 | disposition home or self-care (01) ==
PROVIDERS: PCP Family Medicine; Visit Provider Family Medicine
DX: R10.9 Unspecified abdominal pain (principal); R10.13 Epigastric pain; R19.7 Diarrhea, unspecified

== ENCOUNTER 2024-08-08 09:02 | Outpatient (REF) | payer OTHER, SELFPAY ==
--- NOTE | ~2024-08-08 | XR_ITS ---
CLINICAL HISTORY: R10.9 - Unspecified abdominal pain Abdomen one view Comparison: None Findings: Nonobstructive bowel gas pattern. Large stool burden. Lung bases clear. Upper normal heart size. No opaque calculi. Bones intact. Impression: Nonobstructive bowel gas pattern with large stool burden. This document has been electronically signed by: Chriss Encarnacion MD on 08/10/2024 12:30:22
== END 2024-08-08 09:03 | disposition home or self-care (01) ==
LOC: HO.XRAY 09:02
PROVIDERS: PCP Family Medicine; Visit Provider Family Medicine
DX: R10.9 Unspecified abdominal pain (principal)
CPT/HCPCS: 74018

== ENCOUNTER → 2024-08-08 09:10 | Outpatient (BNV) | payer OTHER, SELFPAY | PROVIDERS: PCP Family Medicine; Visit Provider Radiology Diagnostic Radiology | DX: R14.0 Abdominal distension (gaseous) (principal) | CPT/HCPCS: 74018 ==

== ENCOUNTER 2024-08-09 09:34 | Emergency (ER) | payer OTHER, SELFPAY ==
[2024-08-09 10:02] VITALS: BP 122/70; PULSE 85; RESP 16; TEMP 36.8; O2SAT 98; BMI 43.1
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
[2024-08-09 12:16] LABS: Hematocrit 39.6 % (37.0-47.0); Hemoglobin 12.7 g/dl (12.0-16.0); Mean Corpuscular HGB Conc 32.1 g/dl (31.0-35.0); Mean Corpuscular Volume 84.3 fL (80.0-98.0); Mean Platelet Volume 8.9 fL (9.4-12.3); Platelet Count 406 X10*3/uL (160-400); White Blood Count 5.8 X10*3/uL (4.8-10.8)
[2024-08-09 12:27] LABS: Alanine Aminotransferase 61 U/L (0-31); Albumin Level 4.2 g/dL (3.5-5.0); Alkaline Phosphatase 81 U/L (39-117); Anion Gap 11 (12-20); Aspartate Amino Transferase 24 U/L (5-31); Bilirubin Total 0.2 mg/dL (0.0-1.0); Blood Urea Nitrogen 6 mg/dL (9-16); Carbon Dioxide 25 mmol/L (22-29); Chloride 109 mmol/L (96-108); Creatinine Clr Calc Pharmacy 151.6; Estimated Glomerular Filt Rate > 60; Glucose Random 96 mg/dL (60-115); Lipase 19 U/L (8-78); Magnesium 2.2 mg/dL (1.6-2.6); Potassium 4.3 mmol/L (3.3-5.1); Sodium 141 mmol/L (135-145); Total Protein 7.8 g/dL (6.5-8.0)
[2024-08-09 12:30] LABS: Atypical Lymph Absolute Manual 0.3 x10*3/uL; Atypical Lymphs Percent Manual 5 % (0-6); Lymphocytes Absolute Manual 2.1 X10*3/uL (1.2-4.9); Lymphocytes Percent Manual 37 % (20-40); Monocytes Absolute Manual 0.5 X10*3/uL (0.1-1.2); Monocytes Percent Manual 8 % (2-11); Neutrophils Percent Manual 50 % (45-73)
[2024-08-09 12:31] LABS: Band Neutrophils Percent 0 % (3-5); Neutrophils Absolute Manual 2.9 X10*3/uL (2.0-8.3); Platelet Estimate NORMAL (NORMAL); Platelet Morphology Comment NORMAL; RBC Morphology NORMAL
[2024-08-09 13:35] VITALS: BP 104/69; PULSE 88; RESP 13; TEMP 36.9; O2SAT 97
[2024-08-09 13:55] VITALS: BP 104/69; PULSE 88; RESP 13; TEMP 36.9; O2SAT 97
== END 2024-08-09 13:56 | disposition home or self-care (01) ==
PROVIDERS: Physician Assistant Medical; Emergency Provider Emergency Medicine; PCP Family Medicine
DX: A04.72 Enterocolitis due to Clostridium difficile, not specified as recurrent (principal); R19.7 Diarrhea, unspecified; Z79.899 Other long term (current) drug therapy
CPT/HCPCS: 36415; 80053; 83690; 83735; 85007; 85027; 99283

== ENCOUNTER 2024-08-28 09:42 | Outpatient (REF) | payer OTHER, SELFPAY ==
[2024-08-28 15:57] LABS: Influenza A PCR POSITIVE (Negative); Influenza B PCR NEGATIVE (Negative); Resp Syncy Virus RNA Qual PCR NEGATIVE (Negative); SARS COV2 PCR INHOUSE NEGATIVE (Negative)
== END 2024-08-28 09:43 | disposition home or self-care (01) ==
LOC: HO.HMGCLNP 09:42
PROVIDERS: PCP Family Medicine; Visit Provider Physician Assistant
DX: R09.89 Other specified symptoms and signs involving the circulatory and respiratory systems (principal)
CPT/HCPCS: 0241U; 99212

== ENCOUNTER → 2024-08-28 09:42 | Outpatient (AMB) | END | disposition home or self-care (01) ==

== ENCOUNTER 2024-11-03 07:39 | Outpatient (REF) | payer OTHER, SELFPAY ==
--- OUTSIDE RECORDS SUMMARY | 2024-11-03 07:43 | XMS_ITS | Data Portability ---
Author Organization [facility], [address] Address [address] [place] [address] Assessment No assessment recorded. Plan of Treatment Reminders Order Date Submit Date Provider Last Modified By Organization Details Last Modified Time Details Appointments None record ed. Lab None record ed. Referral None record ed. Procedures None record ed. Surgeries None record ed. Imaging None record ed. Medication Orders None record ed. Patient TargetsNo targets recorded. Patient InstructionsNo instructions recorded. Reason for Referral None Reported. Medical Equipment None Reported. Vitals None Recorded Social History None recorded. Functional Status None recorded. Mental Status None recorded. Family History Nothing Reported. Medical History No medical history recorded. Gynecological HistoryNo gynecological history recorded. Obstetrics History GPAL:G 0 P 0 0 0 0 Past Encounters Encounter ID Performer Location Encounter Start Date Encounter Closed Date Diagnosis/Indication Diagnosis SNOMED-CT Code Diagnosis ICD10 Code Diagnosis Note [id number] [address] [address] 03/28/2017 18:38:22 03/28/2017 19:14:36 [id number] [address] [address] 06/03/2021 12:49:18 06/03/2021 14:53:51 [id number] [address] [address] 04/23/2022 17:15:17 04/23/2022 18:23:02 [id number] [address] [address] 09/19/2021 17:38:26 09/19/2021 18:23:44 [id number] [address] [address] 01/22/2021 16:15:55 01/22/2021 16:49:34 Health Concerns Section Related Observation LastModified by Organization Detai ls LastModified Time None Recorded Concern Status LastModified by Organization Details LastModified Time None Recorded Advance Directives Directive None Recorded Payers Encounter Date Sequence Insurance Name Policy Number Policy Adkins Covered Member ID Adkins Member ID Guarantor Name 01/22/2021 1 [facility] NET PLAN (MEDICAID HMO) [employer] Ivelianisse Archuleta [id number] Ivelianisse Archuleta 06/03/2021 1 [facility] NET PLAN (MEDICAID HMO) [employer] Ivelianisse Archuleta [id number] Ivelianisse Archuleta 09/19/2021 1 [facility] NET PLAN (MEDICAID HMO) [employer] Ivelianisse Archuleta [id number] Ivelianisse Archuleta 04/23/2022 1 [facility] (MEDICAID HMO) [employer] Ivelianisse Archuleta [id number] Ivelianisse Archuleta OBGyn Episode No OBEpisode recorded.
[2024-11-03 11:40] LABS: HBS Num1 8.56 mIU/mL (0-7.99); HBc Num1 0.18 S/CO (0.00-0.79); HBsAGNum1 0.41 S/CO (0.00-0.99); Hepatitis B Core Antibody Nonreactive (Nonreactive); Hepatitis B Surface Antigen Negative (Negative); ~HepC Num1 0.12 S/CO (0.00-0.79); ~Hepatitis C Antibody Nonreactive (Nonreactive)
[2024-11-04 05:18] LABS: Rubella IgG Antibody 1.22 Index; Rubeola IgG (Measles) <13.50 AU/mL
[2024-11-05 11:53] LABS: HBS Num2 9.71 mIU/mL (0-7.99); HBS Num3 10.29 mIU/mL (0-7.99); ~Hepatitis B Surface Antibody GRAYZONE (Nonreactive)
[2024-11-06 16:39] LABS: TS Negative Control Passed; TS Panel A 0; TS Panel B 0; TS Positive Control Passed; TSpotTB Negative (Negative)
== END 2024-11-03 07:40 | disposition home or self-care (01) ==
LOC: HO.WFDLDS 07:39
PROVIDERS: Visit Provider Family Medicine
DX: Z11.1 Encounter for screening for respiratory tuberculosis (principal); Z71.85 Encounter for immunization safety counseling; Z11.3 Encounter for screening for infections with a predominantly sexual mode of transmission
CPT/HCPCS: 36415; 86481; 86704; 86706; 86735; 86762; 86765; 86787; 86803; 87340

== ENCOUNTER → 2024-11-19 09:51 | Outpatient (BNVA) | payer OTHER, SELFPAY | PROVIDERS: PCP Family Medicine; Visit Provider Advanced Practice Midwife | DX: R10.9 Unspecified abdominal pain (principal); Z86.19 Personal history of other infectious and parasitic diseases; Z71.85 Encounter for immunization safety counseling | CPT/HCPCS: 96127 ==

== ENCOUNTER 2024-11-19 11:42 | Outpatient (AMB) | payer OTHER, SELFPAY ==
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
[2024-11-19 11:59] VITALS: BP 121/68; PULSE 87; RESP 16; TEMP 36.7; O2SAT 99; BMI 44.2
== END 2024-11-19 13:57 | disposition home or self-care (01) ==
PROVIDERS: PCP Family Medicine; Visit Provider Family Medicine
DX: R10.9 Unspecified abdominal pain (principal); Z86.19 Personal history of other infectious and parasitic diseases; Z71.85 Encounter for immunization safety counseling

== ENCOUNTER 2025-01-11 07:09 | Outpatient (REF) | payer OTHER, SELFPAY ==
--- OUTSIDE RECORDS SUMMARY | 2025-01-11 07:12 | XMS_ITS | Data Portability ---
Author Organization [facility], [address] Address [address] [place] [address] Assessment No assessment recorded. Plan of Treatment [...] SNOMED-CT Code Diagnosis ICD10 Code Diagnosis Note [id number] [address] [place] [address] [address] [address] 03/28/2017 18:38:22 03/28/2017 19:14:[id number] [place] [address] [address] [address] 06/03/2021 12:49:18 06/03/2021 14:53:[id number] [place] [address] [address] [address] 04/23/2022 17:15:17 04/23/2022 18:23:[id number] [place] [address] [address] [address] 09/19/2021 17:38:26 09/19/2021 18:23:44 [id number] [address] [address] [address] 01/22/2021 16:15:55 01/22/2021 16:49:34 Health Concerns Section Related Observation LastModified by Organization Detai ls LastModified Time None Recorded Concern Status LastModified by Organization Details LastModified Time None Recorded Advance Directives Directive None Recorded Payers Insurance Date Sequence Insurance Name Policy Number Policy Adkins Covered Member ID Adkins Member ID Guarantor Name 09/19/2024 1 [facility] [id number] Ivelianisse Archuleta [id number] Ivelianisse Archuleta 09/19/2024 1 [facility] NET PLAN (MEDICAID HMO) [place] Ivelianisse Archuleta [id number] Ivelianisse Archuleta OBGyn Episode No OBEpisode recorded.
[2025-01-11 07:32] LABS: MANUAL DIFF FLAG NO
[2025-01-11 07:46] LABS: Basophils Percent Auto 0.4 % (0-2); Eosinophils Absolute Auto 0.1 X10*3/uL (0.0-0.4); Eosinophils Percent Auto 2.6 % (0-4); Hematocrit 40.7 % (37.0-47.0); Hemoglobin 12.7 g/dl (12.0-16.0); Imm Gran Abs Auto 0.01 X10*3/uL (0.00-0.03); Imm Gran Pct Auto 0.2 % (0.0-0.4); Lymphocytes Absolute Auto 1.8 X10*3/uL (1.2-4.9); Lymphocytes Percent Auto 33.3 % (20-40); Mean Corpuscular HGB Conc 31.2 g/dl (31.0-35.0); Mean Corpuscular Hemoglobin 26.5 pg (27.0-33.0); Mean Platelet Volume 8.9 fL (9.4-12.3); Monocytes Absolute Auto 0.4 X10*3/uL (0.1-1.2); Monocytes Percent Auto 6.7 % (2-11); Neutrophils Absolute Auto 3.1 x10*3/uL (2.0-8.3); Neutrophils Percent Auto 56.8 % (45-73); Platelet Count 410 X10*3/uL (160-400); Red Blood Count 4.79 X10*6/uL (4.20-5.50); Red Cell Distribution Width 13.8 % (11.0-16.0); White Blood Count 5.4 X10*3/uL (4.8-10.8)
[2025-01-11 07:54] LABS: Appearance Urine Clear; Color Urine Yellow; Glucose Urine UA Negative (Negative); Leukocyte Esterase Urine Trace (Negative); Nitrite Urine Negative (Negative); Specific Gravity - Urine 1.025 (1.005-1.025); UMIC TRIGGER UA YES; Urine Blood Large (3+) (Negative); Urine Ketones Trace mg/dL (Negative); Urine Protein Trace mg/dL (Neg-Trace)
[2025-01-11 07:56] LABS: Bacteria Urine None Seen (None Seen); Hyaline Casts Urine 0-2 /LPF (0-2); WBC Urine 0-5 /HPF (0-5)
[2025-01-11 08:17] LABS: Alanine Aminotransferase 20 U/L (0-31); Albumin Level 4.2 g/dL (3.5-5.0); Alkaline Phosphatase 62 U/L (39-117); Anion Gap 13 (12-20); Aspartate Amino Transferase 18 U/L (5-31); Bilirubin Total 0.2 mg/dL (0.0-1.0); Blood Urea Nitrogen 11 mg/dL (9-16); Calcium 9.2 mg/dL (8.4-10.2); Carbon Dioxide 21 mmol/L (22-29); Chloride 109 mmol/L (96-108); Cholesterol 231 mg/dL (<200); Estimated Glomerular Filt Rate > 60; Glucose Fasting 92 mg/dL (60-99); Glucose Random 92 mg/dL (60-115); HDL Cholesterol 57 mg/dL (>40); LDL Cholesterol Calculated 146 mg/dL (<100); Lipase 14 U/L (8-78); Potassium 4.3 mmol/L (3.3-5.1); Sodium 139 mmol/L (135-145); Total Protein 7.2 g/dL (6.5-8.0); Triglycerides 141 mg/dL (<150)
[2025-01-11 08:27] LABS: Creatinine Urine 244.54 mg/dL; Microalbum/Creatinine Ratio Ur 7.7 ug/mg cr (<30)
[2025-01-11 08:33] LABS: TSH reflex Free T4 1.91 uIU/mL (0.32-4.0)
[2025-01-11 08:34] LABS: HBS Num1 > 1000.00 mIU/mL (0-7.99); HBc Num1 0.14 S/CO (0.00-0.79); Hepatitis B Core Antibody Nonreactive (Nonreactive); Hepatitis B Surface Antigen Negative (Negative); ~HepC Num1 0.11 S/CO (0.00-0.79); ~Hepatitis B Surface Antibody REACTIVE (Nonreactive); ~Hepatitis C Antibody Nonreactive (Nonreactive)
[2025-01-12 06:28] LABS: Rubeola IgG (Measles) >300.00 AU/mL
== END 2025-01-11 07:10 | disposition home or self-care (01) ==
LOC: HO.LAB 07:09
PROVIDERS: PCP Family Medicine; Visit Provider Family Medicine
DX: Z00.00 Encounter for general adult medical examination without abnormal findings (principal); Z11.3 Encounter for screening for infections with a predominantly sexual mode of transmission; R10.13 Epigastric pain; I10 Essential (primary) hypertension
CPT/HCPCS: 36415; 80053; 80061; 81001; 82043; 82570; 83690; 84443; 85025; 86704; 86706; 86735; 86762; 86765; 86803; 87340

== ENCOUNTER 2025-01-12 12:25 | Outpatient (REF) | payer OTHER, SELFPAY ==
[2025-01-12 13:29] LABS: CDiff Gene PCR NEGATIVE (Negative)
--- OUTSIDE RECORDS SUMMARY | 2025-01-12 13:57 | XMS_ITS | Data Portability ---
Author Organization [facility], [address] Address [address] [place] [address] Assessment No assessment recorded. Plan of Treatment [...] SNOMED-CT Code Diagnosis ICD10 Code Diagnosis Note [id number] [address] [place] [address] [address] [address] 03/28/2017 18:38:22 03/28/2017 19:14:[id number] [place] [address] [address] [address] 06/03/2021 12:49:18 06/03/2021 14:53:[id number] [place] [address] [address] [address] 04/23/2022 17:15:17 04/23/2022 18:23:[id number] [place] [address] [address] [address] 09/19/2021 17:38:26 09/19/2021 18:23:44 [id number] 20994_[facility] _[facility] [address] [address] 01/22/2021 16:15:55 01/22/2021 16:49:34 Health Concerns Section Related Observation LastModified by Organization Detai ls LastModified Time None Recorded Concern Status LastModified by Organization Details LastModified Time None Recorded Advance Directives Directive None Recorded Payers Insurance Date Sequence Insurance Name Policy Number Policy Adkins Covered Member ID Adkins Member ID Guarantor Name 09/19/2024 1 [facility] [id number] Ivelianisse Archuleta [id number] Ivelianisse Archuleta 09/19/2024 1 [facility] - HEALTH NET PLAN (MEDICAID HMO) [place] Ivelianisse Archuleta [id number] Ivelianisse Archuleta OBGyn Episode No OBEpisode recorded.
[2025-01-12 14:15] LABS: Leukocytes Stool Qualitative NEGATIVE (NEGATIVE)
[2025-01-12 14:25] LABS: Adenovirus F 40/41 Not Detected (Not Detect.); Astrovirus Not Detected (Not Detect.); Campylobacter Not Detected (Not Detect.); Cryptosporidium Not Detected (Not Detect.); Cyclospora cayetanensis Not Detected (Not Detect.); E. coli EAEC Not Detected (Not Detect.); E. coli EPEC Not Detected (Not Detect.); E. coli ETEC Not Detected (Not Detect.); E. coli STEC Not Detected (Not Detect.); Entamoeba histolytica Not Detected (Not Detect.); Giardia lamblia Not Detected (Not Detect.); Norovirus GI/GII Not Detected (Not Detect.); Plesiomonas shigelloides Not Detected (Not Detect.); Rotavirus A Not Detected (Not Detect.); Sapovirus Not Detected (Not Detect.); Shigella sp./EIEC Not Detected (Not Detect.); Vibrio Not Detected (Not Detect.); Vibrio Cholerae Not Detected (Not Detect.); Yersinia enterocolitica Not Detected (Not Detect.)
[2025-01-12 14:32] LABS: Salmonella Detected (Not Detect.)
== END 2025-01-12 12:26 | disposition home or self-care (01) ==
LOC: HO.LNP 12:25
PROVIDERS: Visit Provider Family Medicine
DX: R10.9 Unspecified abdominal pain (principal); Z86.19 Personal history of other infectious and parasitic diseases
CPT/HCPCS: 87177; 87209; 87493; 87507; 89055

== ENCOUNTER 2025-01-13 14:46 | Outpatient (AMB) | payer OTHER, SELFPAY ==
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
[2025-01-13 15:06] VITALS: BP 118/70; PULSE 96; RESP 14; TEMP 36.9; O2SAT 98; BMI 45.0
--- OUTSIDE RECORDS SUMMARY | 2025-01-13 17:41 | XMS_ITS | Data Portability ---
Author Organization [facility], [address] Address [address] [place] [address] Assessment No assessment recorded. Plan of Treatment [...] SNOMED-CT Code Diagnosis ICD10 Code Diagnosis Note [id number] [address] [place] [address] [address] [address] 03/28/2017 18:38:22 03/28/2017 19:14:[id number] [place] [address] [address] [address] 06/03/2021 12:49:18 06/03/2021 14:53:[id number] [place] [address] [address] [address] 04/23/2022 17:15:17 04/23/2022 18:23:[id number] [place] [address] [address] [address] 09/19/2021 17:38:26 09/19/2021 18:23:44 [id number] 20994_[facility] _[facility] [address] [address] 01/22/2021 16:15:55 01/22/2021 16:49:34 Health Concerns Section Related Observation LastModified by Organization Detai ls LastModified Time None Recorded Concern Status LastModified by Organization Details LastModified Time None Recorded Advance Directives Directive None Recorded Payers Insurance Date Sequence Insurance Name Policy Number Policy Adkins Covered Member ID Adkins Member ID Guarantor Name 09/19/2024 1 [facility] [id number] Ivelianisse Archuleta [id number] Ivelianisse Archuleta 09/19/2024 1 [facility] - HEALTH NET PLAN (MEDICAID HMO) [place] Ivelianisse Archuleta [id number] Ivelianisse Archuleta OBGyn Episode No OBEpisode recorded.
== END 2025-01-13 15:42 | disposition home or self-care (01) ==
LOC: HO.HMCFM 14:47
PROVIDERS: PCP Family Medicine; Visit Provider Family Medicine
DX: Z00.00 Encounter for general adult medical examination without abnormal findings (principal); A02.9 Salmonella infection, unspecified; G47.10 Hypersomnia, unspecified; E78.00 Pure hypercholesterolemia, unspecified

== ENCOUNTER → 2025-01-13 14:46 | Outpatient (BNVA) | payer OTHER, SELFPAY | PROVIDERS: PCP Family Medicine; Visit Provider Family Medicine | DX: Z00.00 Encounter for general adult medical examination without abnormal findings (principal); A02.9 Salmonella infection, unspecified; E66.9 Obesity, unspecified; G47.10 Hypersomnia, unspecified; E78.00 Pure hypercholesterolemia, unspecified; Z68.42 Body mass index [BMI] 45.0-49.9, adult | CPT/HCPCS: 96127 ==

== ENCOUNTER 2025-02-05 16:20 | Outpatient (REF) | payer OTHER, SELFPAY ==
--- NOTE | ~2025-02-05 | XR_ITS ---
EXAMINATION: XR ABDOMEN KUB CLINICAL INDICATION: R10.9 - Unspecified abdominal pain COMPARISON: None available. TECHNIQUE: AP view of the abdomen. FINDINGS: The bowel gas pattern is normal with no evidence of ileus or obstruction. No unusual soft tissue calcifications are noted. The bones are unremarkable. XR/XR KUB IMPRESSION: Unremarkable examination. Electronically signed by: Desean Rivas MD 02/05/2025 04:47 PM EDT
--- OUTSIDE RECORDS SUMMARY | 2025-02-05 16:23 | XMS_ITS | Data Portability ---
Author Organization [facility], [address] Address [address] [place] [address] Assessment No assessment recorded. Plan of Treatment [...] SNOMED-CT Code Diagnosis ICD10 Code Diagnosis Note [id number] [address] [place] [address] [address] [address] 03/28/2017 18:38:22 03/28/2017 19:14:[id number] [place] [address] [address] [address] 06/03/2021 12:49:18 06/03/2021 14:53:[id number] [place] [address] [address] [address] 04/23/2022 17:15:17 04/23/2022 18:23:[id number] [place] [address] [address] [address] 09/19/2021 17:38:26 09/19/2021 18:23:44 [id number] 20994_[facility] _[facility] [address] [address] 01/22/2021 16:15:55 01/22/2021 16:49:34 Health Concerns Section Related Observation LastModified by Organization Detai ls LastModified Time None Recorded Concern Status LastModified by Organization Details LastModified Time None Recorded Advance Directives Directive None Recorded Payers Insurance Date Sequence Insurance Name Policy Number Policy Adkins Covered Member ID Adkins Member ID Guarantor Name 09/19/2024 1 [facility] [id number] Ivelianisse Archuleta [id number] Ivelianisse Archuleta 09/19/2024 1 [facility] - HEALTH NET PLAN (MEDICAID HMO) [place] Ivelianisse Archuleta [id number] Ivelianisse Archuleta OBGyn Episode No OBEpisode recorded.
== END 2025-02-05 16:21 | disposition home or self-care (01) ==
LOC: HO.XRAY 16:20
PROVIDERS: PCP Family Medicine; Visit Provider Family Medicine
DX: R10.9 Unspecified abdominal pain (principal)
CPT/HCPCS: 74018

== ENCOUNTER → 2025-02-05 16:24 | Outpatient (BNV) | payer OTHER, SELFPAY | PROVIDERS: PCP Family Medicine; Visit Provider Radiology Diagnostic Radiology | DX: R10.9 Unspecified abdominal pain (principal) | CPT/HCPCS: 74018 ==

== ENCOUNTER 2025-02-25 09:44 | Outpatient (REF) | payer OTHER, SELFPAY ==
[2025-02-26 23:13] LABS: Class Almond 0; Class Brazil Nut 0; Class Cashew 0; Class Codfish 0; Class Cow's Milk 0; Class Egg white 0; Class Hazelnut 0; Class Macadamia Nut 0; Class Peanut 0; Class Salmon 0; Class Scallop 0; Class Sesame Seed 0; Class Shrimp 0; Class Soybean 0; Class Tuna 0; Class Walnut 0; Class Wheat 0; F345-IgE Macadmia Nut <0.10 kU/L
== END 2025-02-25 09:45 | disposition home or self-care (01) ==
LOC: HO.LAB 09:44
PROVIDERS: PCP Family Medicine; Visit Provider Nurse Practitioner
DX: K21.9 Gastro-esophageal reflux disease without esophagitis (principal); R19.7 Diarrhea, unspecified; R10.13 Epigastric pain; Z01.84 Encounter for antibody response examination; R10.12 Left upper quadrant pain; Z86.19 Personal history of other infectious and parasitic diseases; Z91.018 Allergy to other foods
CPT/HCPCS: 36415; 86003; 86140

== ENCOUNTER 2025-02-25 09:44 | Outpatient (AMB) | payer OTHER, SELFPAY ==
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
[2025-02-25 09:58] VITALS: BP 114/63; PULSE 84; BMI 43.3
== END 2025-02-25 10:57 | disposition home or self-care (01) ==
PROVIDERS: PCP Family Medicine; Visit Provider Nurse Practitioner
DX: R19.7 Diarrhea, unspecified (principal); R10.13 Epigastric pain; Z86.19 Personal history of other infectious and parasitic diseases; K21.9 Gastro-esophageal reflux disease without esophagitis; R10.9 Unspecified abdominal pain
CPT/HCPCS: 99203

== ENCOUNTER 2025-03-01 17:12 | Outpatient (REF) | payer OTHER, SELFPAY ==
[2025-03-08 18:19] LABS: Calprotectin, Fecal 44 mcg/g
== END 2025-03-01 17:13 | disposition home or self-care (01) ==
LOC: HO.LNP 17:12
PROVIDERS: Visit Provider Nurse Practitioner
DX: R10.13 Epigastric pain (principal); R19.7 Diarrhea, unspecified; Z86.19 Personal history of other infectious and parasitic diseases
CPT/HCPCS: 82656; 83993

== ENCOUNTER 2025-03-11 12:41 | Outpatient (AMB) | payer OTHER, SELFPAY ==
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
[2025-03-11 13:08] VITALS: BP 120/70; PULSE 84; O2SAT 98; BMI 43.3
== END 2025-03-11 13:55 | disposition home or self-care (01) ==
LOC: HO.HSMS 12:42
PROVIDERS: PCP Family Medicine; Visit Provider Physician Assistant Medical
DX: G47.19 Other hypersomnia (principal)
CPT/HCPCS: 99204

== ENCOUNTER → 2025-03-25 13:54 | Outpatient (REF) | payer OTHER, SELFPAY ==
[2025-03-25 14:56] LABS: Hemoglobin A1C 124.1851 umol/L; Total Hemoglobin (HGBA1C) 3279.0715 umol/L
[2025-03-25 15:51] LABS: Ferritin 17 ng/mL (10-122)
[2025-03-25 16:00] LABS: Folate 13.6 ng/mL (> or = 4.0); Vitamin B12 266 pg/mL (200-900)
== END ==
LOC: HO.SL 13:54
PROVIDERS: PCP Family Medicine; Visit Provider Physician Assistant Medical
DX: G47.19 Other hypersomnia (principal); R06.83 Snoring; R53.83 Other fatigue
CPT/HCPCS: 36415; 82306; 82607; 82728; 82746; 83036; 83090; 83921; 84207; 84425; 84443; 95806

== ENCOUNTER → 2025-03-25 14:08 | Outpatient (BNV) | payer OTHER, SELFPAY | PROVIDERS: PCP Family Medicine; Visit Provider Psychiatry & Neurology Neurology | DX: R06.83 Snoring (principal) | CPT/HCPCS: 95806 ==

== ENCOUNTER 2025-04-20 08:56 | Outpatient (AMB) | payer OTHER, SELFPAY ==
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
[2025-04-20 09:02] VITALS: BP 124/76; PULSE 92; RESP 16; TEMP 37.1; O2SAT 99; BMI 44.4
== END 2025-04-20 09:17 | disposition home or self-care (01) ==
PROVIDERS: PCP Family Medicine; Visit Provider Physician Assistant Medical
DX: J01.00 Acute maxillary sinusitis, unspecified (principal); H65.191 Other acute nonsuppurative otitis media, right ear

== ENCOUNTER 2025-04-29 07:54 | Outpatient (REF) | payer OTHER, SELFPAY ==
--- NOTE | ~2025-04-29 | US_ITS ---
CLINICAL HISTORY: R19.7 - Diarrhea, unspecified US abdomen complete Comparison: None provided Findings: The visualized pancreas is normal. The aorta and inferior vena cava are normal caliber. The appearance of the liver suggests fatty infiltration. There is no intrahepatic bile duct dilatation. The common duct is 3.0 mm in diameter. The gallbladder is normal. There is no sonographic Deluca sign. The main portal vein is antegrade. The right kidney is 10.9 cm in length. The left kidney is 9.6 cm in length. The spleen is normal. No ascites. IMPRESSION: 1. Hepatic steatosis. This document has been electronically signed by: Chriss Delgado MD on 04/30/2025 08:40:21
== END 2025-04-29 07:55 | disposition home or self-care (01) ==
LOC: HO.US 07:54
PROVIDERS: PCP Family Medicine; Visit Provider Nurse Practitioner
DX: R19.7 Diarrhea, unspecified (principal); R10.13 Epigastric pain; Z86.19 Personal history of other infectious and parasitic diseases
CPT/HCPCS: 76700

== ENCOUNTER → 2025-04-29 07:57 | Outpatient (BNV) | payer OTHER, SELFPAY | PROVIDERS: PCP Family Medicine; Visit Provider Specialist | DX: K76.0 Fatty (change of) liver, not elsewhere classified (principal) | CPT/HCPCS: 76700 ==

== ENCOUNTER 2025-05-27 09:04 | Outpatient (AMB) | payer OTHER, SELFPAY ==
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
[2025-05-27 09:13] VITALS: BP 112/72; BMI 44.6
== END 2025-05-27 13:12 | disposition home or self-care (01) ==
LOC: HO.HWSM 09:04
PROVIDERS: PCP Family Medicine; Visit Provider Advanced Practice Midwife
DX: Z01.419 Encounter for gynecological examination (general) (routine) without abnormal findings (principal); B37.31 Acute candidiasis of vulva and vagina; Z86.69 Personal history of other diseases of the nervous system and sense organs; Z12.39 Encounter for other screening for malignant neoplasm of breast; Z30.41 Encounter for surveillance of contraceptive pills
CPT/HCPCS: 99395; 99459

== ENCOUNTER 2025-05-27 09:04 | Outpatient (REF) | payer OTHER, SELFPAY ==
[2025-05-28 04:28] LABS: Bacterial Vaginosis PCR NEGATIVE (Negative); Candida Group PCR DETECTED (Not Detect); Candida glab krusei PCR NOT DETECTED (Not Detect); Trichomonas vaginalis PCR NOT DETECTED (Not Detect)
[2025-05-28 04:59] LABS: CT PCR NOT DETECTED (Not Detect.); NG PCR NOT DETECTED (Not Detect.)
== END 2025-05-27 09:05 | disposition home or self-care (01) ==
LOC: HO.LNP 09:04
PROVIDERS: PCP Family Medicine; Visit Provider Advanced Practice Midwife
DX: Z01.419 Encounter for gynecological examination (general) (routine) without abnormal findings (principal); Z30.41 Encounter for surveillance of contraceptive pills; B37.31 Acute candidiasis of vulva and vagina; Z79.899 Other long term (current) drug therapy; Z12.39 Encounter for other screening for malignant neoplasm of breast; Z86.69 Personal history of other diseases of the nervous system and sense organs; Z20.2 Contact with and (suspected) exposure to infections with a predominantly sexual mode of transmission
CPT/HCPCS: 81515; 87491; 87591

== ENCOUNTER 2025-06-04 07:12 | Outpatient (REF) | payer OTHER, SELFPAY ==
[2025-06-04 09:19] LABS: Alanine Aminotransferase 24 U/L (0-31); Albumin Level 4.3 g/dL (3.5-5.0); Alkaline Phosphatase 73 U/L (39-117); Anion Gap 14 (12-20); Aspartate Amino Transferase 22 U/L (5-31); Blood Urea Nitrogen 14 mg/dL (9-16); Calcium 8.9 mg/dL (8.4-10.2); Carbon Dioxide 23 mmol/L (22-29); Chloride 109 mmol/L (96-108); Cholesterol 156 mg/dL (<200); Estimated Glomerular Filt Rate > 60; HDL Cholesterol 57 mg/dL (>40); Potassium 4.5 mmol/L (3.3-5.1); Sodium 141 mmol/L (135-145); Total Protein 7.1 g/dL (6.5-8.0); Triglycerides 94 mg/dL (<150)
[2025-06-04 09:29] LABS: Vitamin B12 1221 pg/mL (200-900)
== END 2025-06-04 07:13 | disposition home or self-care (01) ==
LOC: HO.LAB 07:12
PROVIDERS: Physician Assistant Medical; PCP Family Medicine; Visit Provider Family Medicine
DX: Z00.00 Encounter for general adult medical examination without abnormal findings (principal); G47.19 Other hypersomnia; E78.00 Pure hypercholesterolemia, unspecified
CPT/HCPCS: 36415; 80053; 80061; 82607

== ENCOUNTER 2025-06-05 07:08 | Outpatient (REF) | payer OTHER, SELFPAY ==
[2025-06-05 07:15] LABS: Appearance Urine Clear; Glucose Urine UA Negative (Negative); PH 6.0 (5.0-9.0); Specific Gravity - Urine 1.020 (1.005-1.025); UMIC TRIGGER UA YES
== END 2025-06-05 07:09 | disposition home or self-care (01) ==
LOC: HO.LNP 07:08
PROVIDERS: Visit Provider Family Medicine
DX: Z00.00 Encounter for general adult medical examination without abnormal findings (principal)
CPT/HCPCS: 81001

== ENCOUNTER 2025-06-10 09:06 | Outpatient (AMB) | payer OTHER, SELFPAY ==
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
[2025-06-10 09:15] VITALS: BP 110/66; PULSE 99; RESP 16; TEMP 36.9; O2SAT 97; BMI 45.2
== END 2025-06-10 10:06 | disposition home or self-care (01) ==
LOC: HO.HMCFM 09:06
PROVIDERS: PCP Family Medicine; Visit Provider Family Medicine
DX: E78.00 Pure hypercholesterolemia, unspecified (principal); M54.50 Low back pain, unspecified

== ENCOUNTER 2025-06-10 10:29 | Outpatient (AMB) | payer OTHER, SELFPAY ==
[2025-06-10 10:35] VITALS: BP 128/82; PULSE 85; O2SAT 98; BMI 45.0
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
== END 2025-06-10 11:08 | disposition home or self-care (01) ==
LOC: HO.HSMS 10:30
PROVIDERS: PCP Family Medicine; Visit Provider Physician Assistant Medical
DX: G44.011 Episodic cluster headache, intractable (principal); Z86.69 Personal history of other diseases of the nervous system and sense organs; G47.19 Other hypersomnia; G47.10 Hypersomnia, unspecified
CPT/HCPCS: 99214

== ENCOUNTER → 2025-06-30 20:30 | Outpatient (REF) | payer OTHER, SELFPAY | LOC: HO.SL 20:30 | PROVIDERS: PCP Family Medicine; Visit Provider Physician Assistant Medical | DX: G47.19 Other hypersomnia (principal) | CPT/HCPCS: 95810 ==

== ENCOUNTER → 2025-06-30 21:37 | Outpatient (BNV) | payer OTHER, SELFPAY | PROVIDERS: PCP Family Medicine; Visit Provider Psychiatry & Neurology Neurology | DX: R06.83 Snoring (principal); R40.0 Somnolence | CPT/HCPCS: 95810 ==